=== PATIENT | female | born 1960 | race Caucasian/White ===

== ENCOUNTER 2016-11-27 19:13 | Inpatient (IN) | payer MEDICARE, OTHER ==
[~2016-11-27] VITALS: Ht 162.6 cm; Wt 64.9 kg
--- NOTE | 2016-11-27 19:35 | NUR ---
Patient BIB private ambulance from [facility] for Medical Clearance and GPS admission. Patient arrives on 5150 hold for DTS. Per hold: patient has stated to staff that "voices are telling me to kill myself," patient overdosed on 10 XANAX tablets on 11/24/2016. Per hold: patient has been 'severely disabled' requiring 24/7 care. A/O X3, ambulatory, to room 3A. ERMD performed MSE.
[2016-11-27 19:45] LABS: *BILIRUBIN,URIN NEGATIVE (NEGATIVE); *BLOOD, URINE NEGATIVE (NEGATIVE); *CLARITY,URINE CLEAR (CLEAR); *COLOR,URINE LIGHT YELLOW (YELLOW); *KETONES,URINE NEGATIVE (NEGATIVE); *PROTEIN,URINE NEGATIVE (NEGATIVE); *UROBILINOGEN,URINE 0.2 E.U./dl (NORMAL); NITRITE, URINE NEGATIVE (NEGATIVE); UGLUCOSE NEGATIVE (NEGATIVE)
[2016-11-27 19:55] LABS: LEUKOCYTE ESTERASE ,URINE TRACE (NEGATIVE)
[2016-11-27 19:56] LABS: RBC,URINE 0-3 /HPF (0-3); SQUAMOUS EPITHELIAL CELL,UR FEW /HPF (NONE SEEN)
[2016-11-27] MEDS ORDERED: KETO15VI5 IM (19:58)
[2016-11-27] MEDS ORDERED: ENOX40DI SQ (19:58)
[2016-11-27] MEDS ORDERED: GABA-534 PO (19:58)
[2016-11-27] MEDS ORDERED: IPRA3AMP IH (19:58)
[2016-11-27] MEDS ORDERED: ALPR2TAB7 PO (19:58)
[2016-11-27] MEDS ORDERED: CLON0.1T PO (19:58)
[2016-11-27] MEDS ORDERED: GUAI-177 PO (19:58)
[2016-11-27] MEDS ORDERED: PANT40VI IV (19:58)
[2016-11-27] MEDS ORDERED: ALPR0.255 PO (19:58)
[2016-11-27] MEDS ORDERED: GUAI100S9 PEG (19:58)
[2016-11-27] MEDS ORDERED: DOCU-25 PO (19:58)
[2016-11-27] MEDS ORDERED: NA P133E RC (19:58)
[2016-11-27] MEDS ORDERED: ONDA4VIA30 IV (19:58)
[2016-11-27] MEDS ORDERED: ACET-2154 PO (19:58)
[2016-11-27] MEDS ORDERED: HALO5VIA9 IM (19:58)
[2016-11-27] MEDS ORDERED: PHEN100C4 PO (19:58)
[2016-11-27] MEDS ORDERED: ATOR20TA PO (19:58)
[2016-11-27] MEDS ORDERED: NITR0.4T6 SL (19:58)
[2016-11-27] MEDS ORDERED: [UNRECOGNIZED DRUG - CODE] PO (19:58)
[2016-11-27 19:59] LABS: *AMPHETAMINE, URINE NEGATIVE (NEGATIVE); *BARBITURATE, URINE NEGATIVE (NEGATIVE); *CANNABINOID, URINE NEGATIVE (NEGATIVE); *COCCAINE, URINE NEGATIVE (NEGATIVE); *OPIATE, URINE NEGATIVE (NEGATIVE); *PHENCYCLIDINE SCREEN,URINE NEGATIVE (NEGATIVE)
[2016-11-27 20:14] LABS: BASOPHILS # (AUTO) 0.1 K/uL (0.0-8.0); EOSINOPHILS # (AUTO) 0.2 K/uL (0.0-0.7); EOSINOPHILS % (AUTO) 2.4 % (0.0-7.0); HEMATOCRIT 37.1 % (37-47); HEMOGLOBIN 12.6 G/DL (12.0-16.0); LYMPHOCYTES # (AUTO) 2.9 K/UL (0.8-4.8); MEAN CORPUSCULAR HEMOGLOBIN 31.9 UUG (27.0-31.0); MEAN CORPUSCULAR HGB CONC 34 g/dL (32.0-37.0); MEAN CORPUSCULAR VOLUME 94.3 FL (81.0-99.0); MONOCYTES # (AUTO) 0.7 K/UL (0.1-1.30); MONOCYTES % (AUTO) 7.8 % (0.0-11.0); NEUTROPHILS # (AUTO) 4.5 K/UL (1.8-8.9); NEUTROPHILS % (AUTO) 54.8 % (38.5-71.5); PLATELET COUNT (AUTO) 204 K/UL (150-450); RED BLOOD CELL COUNT(AUTO) 3.94 MIL/UL (4.2-5.4); RED CELL DISTRIBUTION WIDTH 13.4 % (11.5-14.5); WHITE BLOOD COUNT (AUTO) 8.4 K/UL (4.0-11.2)
[2016-11-27 20:25] LABS: CALCIUM 8.6 mg/dL (8.5-10.1); CARBON DIOXIDE 31 mmol/L (21-32); CHLORIDE 108 mmol/L (98-107); CREATININE 0.6 mg/dL (0.6-1.3); GFR 104 mL/min (>60); GLUCOSE 93 mg/dL (74-106); POTASSIUM 3.5 mmol/L (3.5-5.1); SODIUM SERUM 147 mmol/L (136-145); UREA NITROGEN, BLOOD 6 mg/dL (7-18)
[2016-11-27 20:39] LABS: ETHANOL < 3 MG/DL (0-0)
[2016-11-27 20:42] LABS: ACETAMINOPHEN 3.2 ug/mL (10-30); ALANINE AMINOTRANSFERASE 58 U/L (14-59); ALBUMIN 3.1 g/dL (3.4-5.0); ALKALINE PHOSPHATASE 75 U/L (50-136); ASPARTATE AMINOTRANSFERASE 28 U/L (15-37); BILIRUBIN,DIRECT 0.1 mg/dL (0.0-0.2); BILIRUBIN,TOTAL 0.2 mg/dL (0.2-1.0); TOTAL PROTEIN, SERUM 5.9 g/dL (6.4-8.2)
--- NOTE | 2016-11-27 20:57 | NUR ---
Pt. admitted to GPS, under care of Dr. Tang Belongs List completed
[2016-11-27] MEDS ORDERED: MAG HYDROX/AL HYDROX/SIMETH 30 ML LIQUID UDC PO PRN (22:00)
[2016-11-27] MEDS ORDERED: MAGNESIUM HYDROXIDE 30 ML LIQUID UDC PO PRN (22:00)
[2016-11-27] MEDS ORDERED: ZOLPIDEM 5 MG TABLET PO PRN (22:00)
[2016-11-27] MEDS ORDERED: NITROGLYCERIN 0.4 MG/TAB BOTTLE SL PRN (22:00)
[2016-11-27] MEDS ORDERED: ACETAMINOPHEN 325 MG TABLET PO PRN (22:00)
[2016-11-27] MEDS ORDERED: GUAIFENESIN SUGAR FREE 100 MG/5 ML UDC PEG PRN (22:00)
[2016-11-27] MEDS ORDERED: CLONIDINE HCL 0.1 MG TABLET PO PRN (22:00)
[2016-11-27] MEDS ORDERED: ZOLPIDEM 5 MG TABLET ONE (22:08)
[2016-11-27 23:06] LABS: THYROID STIMULATING HORMONE 2.259 mIU/mL (0.358-3.740)
--- NOTE | 2016-11-27 23:31 | NUR ---
PATIENT RECEIVED FROM ER VIA WHEEL CHAIR AT 2114. PATIENT ALERT/ORIENTED X3, PATIENT ABLE TO MAKE NEEDS KNOWN. PATIENT DENIES PAIN AT THIS TIME, DID MENTION HAD LEFT HIP REPLACEMENT. PATIENT ABLE TO SIGN ADMISSION PAPERS AND ANSWER QUESTIONS ON HEALTH AND REASON FOR ADMISSION. PATIENT STATED " I WAS HEARING VOICES TO KILL MY SELF AND TOOK LOTS OF XANAX." WHEN ASKED IF SHE HAS THOUGHTS OF HARMING SELF " NO, I WANT TO GET HELP." PATIENT DENIES AUDITORY HALLUCINATIONS, WILL CONTINUE TO MONITOR AND REDIRECT NEEDED.PATIENT COOPERATIVE WITH CARE, PLEASANT CALM WITH FLAT AFFECT, IS EASILY ANXIOUS WILL CONTINUE TO MONITOR. PATIENT HAS LEFT UPPER AND LOWER ARM BRUISE, AND RIGHT ARM BAND AID WITH BRUISE HAD PICC LINE REMOVED IN ER. PATIENT CHECKED FOR CONTRABAND AND REMOVED PLACED IN LOCKER, SHOWERED AND IN HOSPITAL GOWN.PATIENT AMBULATORY CONTINENT OF BOWEL AND BLADDER, PATIENT ORIENTED TO UNIT, AND ROOM. 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 BED IN LOWEST POSITION, BED LOCKED. PATIENT RECEIVED PATIENT'S RIGHTS HAND BOOK AND ADVISEMENT.
[2016-11-28 00:38] VITALS: BP 122/79
[2016-11-28] MEDS: LORAZEPAM 0.5 MG TABLET PO PRN ×2 (00:45→10:02)
[2016-11-28] MEDS ORDERED: LORAZEPAM 0.5 MG TABLET ONE (00:54)
[2016-11-28 07:30] VITALS: BP 101/69
[2016-11-28] MEDS ORDERED: GUAIFENESIN SUGAR FREE 100 MG/5 ML UDC PO PRN (07:30)
[2016-11-28] MEDS: MUPIROCIN 2% OINT 22 GM TUBE NS SCH ×2 (10:03→20:08)
[2016-11-28] MEDS: DOCUSATE SODIUM 100 MG CAPSULE PO SCH ×2 (10:16→17:13)
[2016-11-28] MEDS: GABAPENTIN 300 MG CAPSULE PO SCH ×3 (10:16→17:13)
--- NOTE | 2016-11-28 13:37 | NUR ---
GPS/RN- LEFT MESSAGE FOR DR RUBY FOR CONSULT REQUEST.
--- NOTE | 2016-11-28 13:41 | NUR ---
Initial discharge instructions: The patient resides at home alone [[address] [place] [id number]; ]. She receives 140 hours from [facility]. Per pt, her [facility] caregiver Du Yeung will most likely be able to pick her up and take her home upon discharge. SW will contact the patient's father Hermelindo Cerna to discuss discharge planning. SS will form a safe and proper discharge.
--- NOTE | 2016-11-28 14:24 | NUR ---
GPS/RN-Received call from Dr Porter, will see patient tomorrow for consult
[2016-11-28] MEDS ORDERED: NICOTINE 21 MG/24HR PATCH TD SCH (14:30)
[2016-11-28] MEDS: NICOTINE 14 MG/24HR PATCH TD SCH (14:51)
[2016-11-28] MEDS ORDERED: IPRATROPIUM BROMIDE 0.5 MG/2.5 ML NEBU NEB PRN (15:00)
[2016-11-28] MEDS ORDERED: ALBUTEROL SULFATE 2.5 MG/ 0.5 ML NEBU NEB PRN (15:00)
[2016-11-28 15:07] VITALS: BP 111/72
--- NOTE | 2016-11-28 15:28 | NUR ---
GPS/RN- RECEIVED VERBAL CONSENT TO SPEAK TO PATIENTS RN FROM [facility] [phone], SPOKE WITH SABRINA CORREIA, CURRENT HOLD STATUS, UTILIZATION REVIEW COORDINATOR TO NOTIFY THEM OF PATIENTS DISCHARGE WHEN STABLE. SALOME, UTILIZATION REVIEW COORDINATOR NOTIFIED.
[2016-11-28] MEDS: CLONAZEPAM 1 MG TABLET PO PRN (17:10)
[2016-11-28 20:00] VITALS: BP 116/70
[2016-11-28] MEDS: QUETIAPINE FUMARATE 100 MG TABLET PO SCH (20:07)
[2016-11-28] MEDS: LAMOTRIGINE 200 MG TABLET PO SCH (20:07)
[2016-11-28] MEDS: ATORVASTATIN 20 MG TABLET PO SCH (20:07)
[2016-11-28] MEDS: PHENYTOIN SODIUM EXTENDED 100 MG CAPSULE.SA PO SCH (20:08)
--- NOTE | 2016-11-28 21:36 | NUR ---
PATIENT RECEIVED IN ACTIVITIES ROOM WATCHING T.V. WITH MASK ON DUE TO (+) MRSA OF THE NARES. PATIENT AWARE OF ISOLATION PRECAUTIONS. PATIENT DENIES SI, WILL CONTINUE TO MONITOR. PATIENT ENCOURAGED TO EXPRESS FEELINGS AND CONCERNS. PATIENT COMPLAINT WITH HS MEDICATION/CARE. PATIENT IN NO APPARENT DISTRESS, NO AGGRESSIVE OR COMBATIVE BEHAVIOR WILL CONTINUE TO MONITOR AND REDIRECT NEEDED. PATIENT DENIES PAIN AT THIS TIME, WILL CONTINUE TO MONITOR.
[2016-11-28] MEDS: TEMAZEPAM 15 MG CAPSULE PO PRN (23:58)
[2016-11-29 07:30] VITALS: BP 95/67
[2016-11-29] MEDS: SERTRALINE HCL 50 MG TABLET PO SCH (08:00)
[2016-11-29] MEDS: NICOTINE 14 MG/24HR PATCH TD SCH (08:00)
[2016-11-29] MEDS: LAMOTRIGINE 200 MG TABLET PO SCH ×2 (08:01→20:06)
[2016-11-29] MEDS: DOCUSATE SODIUM 100 MG CAPSULE PO SCH ×2 (08:01→17:31)
[2016-11-29] MEDS: GABAPENTIN 300 MG CAPSULE PO SCH ×3 (08:01→17:32)
[2016-11-29] MEDS: MUPIROCIN 2% OINT 22 GM TUBE NS SCH (08:10)
[2016-11-29] MEDS: CLONAZEPAM 1 MG TABLET PO PRN ×2 (09:05→17:32)
--- NOTE | 2016-11-29 09:21 | NUR ---
GPS RN PT WILL BE TRANSFERRED TO 2ND FLOOR OVERFLOW. CHART SENT WITH THE PATIENT. REPORT GIVEN TO SABRINA GREEN.
--- NOTE | 2016-11-29 09:30 | NUR ---
RECEIVED PT FROM [facility] IN WHEELCHAIR. PT A/OX3. V/S STABLE. NO SIGNS OF ACUTE DISTRESS. CALL LIGHT WITHIN REACH. 1:1 SITTER AND BEDSIDE FOR SAFETY.
[2016-11-29 10:06] VITALS: BP 110/75
--- NOTE | 2016-11-29 11:00 | NUR ---
ORDERED 14 DAY HOLD.
[2016-11-29 16:00] VITALS: BP 98/64
--- NOTE | 2016-11-29 18:35 | NUR ---
END OF SHIFT NOTES. PT A/OX3. PT IN STABLE CONDITION. NO SIGNS OF ACUTE DISTRESS. SAFETY MEASURE PROVIDED. CALL LIGHT W/IN REACH. 1:1 SITTER AT BEDSIDE.
[2016-11-29] MEDS: HYDROCODONE/APAP 5-325MG TABLET PO PRN (18:50)
--- NOTE | 2016-11-29 19:30 | NUR ---
RECEIVED PT IN BED, RESTING. CALM AND COOPERATIVE, IN NO ACUTE SIGNS OF DISTRESS, SITTER AT BEDSIDE. DENIES SI AT THIS TIME. SAFETY OBSERVED. CALL LIGHT WITHIN REACH.
[2016-11-29 20:00] VITALS: BP 117/85
[2016-11-29] MEDS: ATORVASTATIN 20 MG TABLET PO SCH (20:06)
[2016-11-29] MEDS: PHENYTOIN SODIUM EXTENDED 100 MG CAPSULE.SA PO SCH (20:06)
[2016-11-29] MEDS: QUETIAPINE FUMARATE 100 MG TABLET PO SCH (20:06)
[2016-11-29] MEDS: VALACYCLOVIR HCL 500 MG TABLET PO SCH (20:06)
[2016-11-29] MEDS: TEMAZEPAM 15 MG CAPSULE PO PRN (21:39)
[2016-11-30 05:00] VITALS: BP 107/66
[2016-11-30] MEDS: HYDROCODONE/APAP 5-325MG TABLET PO PRN ×3 (05:30→20:47)
--- NOTE | 2016-11-30 06:49 | NUR ---
PT AMBULATING IN THE HALLWAY WITH THE SITTER, WITH ASSISTIVE DEVICE. WAS GIVEN NORCO FOR C/O LEFT HIP PAIN, AND WAS HELPFUL. SLEPT TOTAL OF 6.0 HRS. SAFETY MAINTAINED. CALL LIGHT WITHIN REACH.
--- NOTE | 2016-11-30 08:00 | NUR ---
AWAKE CALM AND COOPERATE AT THIS TIME NO S/S OF ANY CHEST PAIN ,SOB OR SUCIDAL THOUGHT TAKE AM MEDICATION ORDER
[2016-11-30 08:25] VITALS: BP 101/70
[2016-11-30] MEDS: LAMOTRIGINE 200 MG TABLET PO SCH ×2 (08:41→20:47)
[2016-11-30] MEDS: GABAPENTIN 300 MG CAPSULE PO SCH ×3 (08:41→16:44)
[2016-11-30] MEDS: CLONAZEPAM 1 MG TABLET PO PRN ×2 (08:41→16:46)
[2016-11-30] MEDS: SERTRALINE HCL 50 MG TABLET PO SCH (08:42)
[2016-11-30] MEDS: NICOTINE 14 MG/24HR PATCH TD SCH (08:42)
[2016-11-30] MEDS: VALACYCLOVIR HCL 500 MG TABLET PO SCH ×2 (08:42→20:47)
[2016-11-30] MEDS: DOCUSATE SODIUM 100 MG CAPSULE PO SCH ×2 (08:49→16:44)
--- NOTE | 2016-11-30 14:00 | NUR ---
STATE HAVING SOME VAG DISCHARGE HX OF HERPIES ,HAVING CHECK ON THIS AFTERNOON IT WAS NO DISCHARGE FROM VAGINA AND CLEAN ,INSTRUCTION TO CLEAN /WASH POST VOIDING OR AFTER HAVING BM,VERBALIZES UNDERSTAND
--- NOTE | 2016-11-30 15:00 | NUR ---
PATIENT ASKING TO USE TEL TO CALL FAMILY ,GIVEN AND CLOSED OBSERVATION DOING WELL NO ANXIUOS OR AGITATION
[2016-11-30 15:03] VITALS: BP 107/75
--- NOTE | 2016-11-30 17:00 | NUR ---
RESTING QUIET PAIN UNDER CONTROL SAFETY MEASURE PROVIDED CALL LIGHT WITHIN REACH AND SITTER1:1 AT BEDSIDE
--- NOTE | 2016-11-30 19:10 | NUR ---
Received report from SABRINA Oakley
--- NOTE | 2016-11-30 19:50 | NUR ---
Seen patient ambulatiing in the hallway with FWW accompanied by the sitter. NO SOB/SOBOE presented.
[2016-11-30 20:11] VITALS: BP 122/83
--- NOTE | 2016-11-30 20:30 | NUR ---
Complaint of left hip pain, medicated as needed. Will monitor.
[2016-11-30] MEDS: PHENYTOIN SODIUM EXTENDED 100 MG CAPSULE.SA PO SCH (20:46)
[2016-11-30] MEDS: ATORVASTATIN 10 MG TABLET PO SCH (20:46)
[2016-11-30] MEDS: QUETIAPINE FUMARATE 100 MG TABLET PO SCH (20:46)
[2016-11-30] MEDS ORDERED: ATORVASTATIN 20 MG TABLET PO SCH (21:00)
[2016-12-01] MEDS: TEMAZEPAM 15 MG CAPSULE PO PRN ×2 (01:15→21:40)
--- NOTE | 2016-12-01 01:25 | NUR ---
Medicated for pain as needed. Will monitor therapuetic effect.
[2016-12-01 04:00] VITALS: BP 106/74
--- NOTE | 2016-12-01 06:34 | NUR ---
Slept at short interval. Sitter remain at bedside. Pain management effective. No further complaint presented. All needs attended and met. Continue care as planned.
--- NOTE | 2016-12-01 06:59 | NUR ---
Report given to SABRINA Gomez
[2016-12-01] MEDS: NICOTINE 14 MG/24HR PATCH TD SCH (08:18)
[2016-12-01] MEDS: GABAPENTIN 300 MG CAPSULE PO SCH ×3 (08:18→17:48)
[2016-12-01] MEDS: LAMOTRIGINE 200 MG TABLET PO SCH ×2 (08:19→20:29)
[2016-12-01] MEDS: SERTRALINE HCL 50 MG TABLET PO SCH (08:19)
[2016-12-01] MEDS: CLONAZEPAM 1 MG TABLET PO PRN ×2 (08:19→17:48)
[2016-12-01] MEDS: FAMOTIDINE 20 MG TABLET PO SCH (08:19)
[2016-12-01] MEDS: DOCUSATE SODIUM 100 MG CAPSULE PO SCH ×2 (08:19→17:48)
[2016-12-01] MEDS: VALACYCLOVIR HCL 500 MG TABLET PO SCH ×2 (08:26→20:37)
[2016-12-01] MEDS: HYDROCODONE/APAP 5-325MG TABLET PO PRN ×2 (08:26→14:10)
--- NOTE | 2016-12-01 08:30 | NUR ---
AWAKE COOPERATE WELL NO SOB OR PAIN AT THIS TIME SAFETY PRECAUTION SITTER1:1 AT BEDSIDE AND CALL LIGHT WITHIN REACH
[2016-12-01 11:45] VITALS: BP 104/72
[2016-12-01 16:09] VITALS: BP 123/81
--- NOTE | 2016-12-01 18:00 | NUR ---
SAME CONDITION AMB WELL IN THE RESENDIZ WAY HEMODYNAMICS STATUS STABLE CALM AND COOPERATE TODAY
[2016-12-01 20:00] VITALS: BP 132/75
--- NOTE | 2016-12-01 20:00 | NUR ---
LAYING IN BED, CALM AND COOPERATIVE. NO S/SX OF AGGRESSION NOTED. NO HALLUCINATIONS NOTED. WITH COMPLAINTS OF LEFT GROIN SPASMS, REQUESTING FOR MUSCLE RELAXANT. CONTINUES WITH 1:1 SITTER AT BEDSIDE. WILL CONTINUE TO MONITOR
[2016-12-01] MEDS: ATORVASTATIN 10 MG TABLET PO SCH (20:29)
[2016-12-01] MEDS: PHENYTOIN SODIUM EXTENDED 100 MG CAPSULE.SA PO SCH (20:29)
[2016-12-01] MEDS: QUETIAPINE FUMARATE 100 MG TABLET PO SCH (20:29)
[2016-12-01] MEDS: CARISOPRODOL 350 MG TABLET PO PRN (21:40)
[2016-12-01] MEDS ORDERED: CARISOPRODOL 350 MG TABLET ONE (21:49)
--- NOTE | 2016-12-02 06:06 | NUR ---
REMAINED CALM THROUGH OUT THE SHIFT. NO ACUTE DISTRESS NOTED. NO HALLUCINATIONS NOTED. SLEPT FOR A TOTAL OF 7.5 HOURS. NEEDS ATTENDED. COOPERATIVE WITH CARE. ALL DUE MEDS GIVEN ORDERED. CONTINUES WITH 1:1 SITTER FOR SAFETY. NO SUICIDAL IDEATION NOTED
[2016-12-02 06:45] LABS: CREATININE 0.8 mg/dL (0.6-1.3); MAGNESIUM 2.5 mg/dL (1.8-2.4); PHOSPHOROUS 5.1 mg/dL (2.5-4.9); POTASSIUM 4.7 mmol/L (3.5-5.1)
[2016-12-02 06:54] LABS: BASOPHILS % (AUTO) 0.4 % (0.0-2.0); EOSINOPHILS # (AUTO) 0.4 K/uL (0.0-0.7); EOSINOPHILS % (AUTO) 5.2 % (0.0-7.0); HEMATOCRIT 39.4 % (37-47); HEMOGLOBIN 13.7 G/DL (12.0-16.0); LYMPHOCYTES # (AUTO) 2.6 K/UL (0.8-4.8); LYMPHOCYTES % (AUTO) 36.6 % (20.5-51.5); MEAN CORPUSCULAR HEMOGLOBIN 32.6 UUG (27.0-31.0); MEAN CORPUSCULAR HGB CONC 35 g/dL (32.0-37.0); MEAN CORPUSCULAR VOLUME 93.9 FL (81.0-99.0); MONOCYTES # (AUTO) 0.7 K/UL (0.1-1.30); NEUTROPHILS # (AUTO) 3.4 K/UL (1.8-8.9); NEUTROPHILS % (AUTO) 47.8 % (38.5-71.5); PLATELET COUNT (AUTO) 183 K/UL (150-450); RED CELL DISTRIBUTION WIDTH 14.1 % (11.5-14.5); WHITE BLOOD COUNT (AUTO) 7.1 K/UL (4.0-11.2)
--- NOTE | 2016-12-02 07:10 | NUR ---
PT SLEEPING IN BED, AWAKENS TO TOUCH, SITTER AT BEDSIDE, NO ACUTE DISTRESS, ALL SAFETY AND COMFORT MEASURES ATTENDED TO, CALL LIGHT IN REACH.
[2016-12-02] MEDS: NICOTINE 14 MG/24HR PATCH TD SCH (08:35)
[2016-12-02] MEDS: HYDROCODONE/APAP 5-325MG TABLET PO PRN ×3 (08:35→22:02)
[2016-12-02] MEDS: LAMOTRIGINE 200 MG TABLET PO SCH ×2 (08:35→20:37)
[2016-12-02] MEDS: SERTRALINE HCL 50 MG TABLET PO SCH (08:35)
[2016-12-02] MEDS: FAMOTIDINE 20 MG TABLET PO SCH (08:35)
[2016-12-02] MEDS: DOCUSATE SODIUM 100 MG CAPSULE PO SCH ×2 (08:35→16:18)
[2016-12-02] MEDS: GABAPENTIN 300 MG CAPSULE PO SCH ×3 (08:35→16:18)
[2016-12-02] MEDS: VALACYCLOVIR HCL 500 MG TABLET PO SCH ×2 (08:44→20:38)
[2016-12-02] MEDS: CARISOPRODOL 350 MG TABLET PO PRN (11:02)
[2016-12-02 12:00] VITALS: BP 124/83
[2016-12-02 15:55] VITALS: BP 106/62
[2016-12-02] MEDS: CLONAZEPAM 1 MG TABLET PO PRN (16:18)
[2016-12-02 19:30] VITALS: BP 120/81
--- NOTE | 2016-12-02 20:00 | NUR ---
WALKING IN THE HALLWAY ALONG WITH SITTER. NO ACUTE DISTRESS NOTED. NO SUICIDAL IDEATION NOTED. NO ACUTE DISTRESS NOTED. DENIES ANY HALLUCINATION. ABLE TO MAKE NEEDS KNOWN. CONTINUES WITH 1:1 SITTER AT BEDSIDE
[2016-12-02] MEDS: QUETIAPINE FUMARATE 100 MG TABLET PO SCH (20:37)
[2016-12-02] MEDS: ATORVASTATIN 10 MG TABLET PO SCH (20:37)
[2016-12-02] MEDS: PHENYTOIN SODIUM EXTENDED 100 MG CAPSULE.SA PO SCH (20:37)
[2016-12-02] MEDS: TEMAZEPAM 15 MG CAPSULE PO PRN (22:02)
--- NOTE | 2016-12-03 05:59 | NUR ---
NO ACUTE DISTRESS NOTED. ALL DUE MEDS GIVEN ORDERED. NO SUICIDAL IDEATION NOTED. CONTINUES WITH SITTER AT BEDSIDE. SLEPT FOR A TOTAL OF 6.5 HOURS. NO HALLUCINATIONS NOTED. COMPLIANT WITH CARE.
[2016-12-03 06:07] VITALS: BP 109/76
[2016-12-03] MEDS: HYDROCODONE/APAP 5-325MG TABLET PO PRN (07:23)
--- NOTE | 2016-12-03 07:45 | NUR ---
AWAKE ALERT COOPERATE AT THIS TIME C/O OF PAIN ON SCOTTY LEG MED PRN GIVEN ORDER NO SUICIDAL THOUGHT OR HALLUCIANATION SAFETY MEASURE PROVIDED SITTER 1:1 AND CALL BECERRA IN REACH
--- NOTE | 2016-12-03 08:12 | NUR ---
DC Note: The patient will be discharged today back home [[address] [place] [address]; ] via private car at 9:00 am. Her ex-/friend William will pick her up and take her home. The patient is aware and agreeablw with the discharge plan. Per pt, she receives 140 hours from [facility]. Per pt, her [facility] caregiver Du Yeung will be able to assist her at her home upon discharge. SW has called the patient's personal RN, Dee with the [facility] and informed her of the discharge plan. The patient will follow-up with her management specialist Dr. Calle and her psychiatrist Dr. Allan Farnsworth . The patient was provided with the brief intervention for substance abuse and was provided with the appropriate referrals. She was referred to [facility] , [facility] , and [facility] . The patient will present at [facility] [[address] [place] [address]; at 9:00 am for intake screening.
[2016-12-03] MEDS: LAMOTRIGINE 200 MG TABLET PO SCH (08:22)
[2016-12-03] MEDS: CLONAZEPAM 1 MG TABLET PO PRN (08:22)
[2016-12-03] MEDS: NICOTINE 14 MG/24HR PATCH TD SCH (08:22)
[2016-12-03] MEDS: DOCUSATE SODIUM 100 MG CAPSULE PO SCH (08:22)
[2016-12-03] MEDS: GABAPENTIN 300 MG CAPSULE PO SCH (08:22)
[2016-12-03] MEDS: VALACYCLOVIR HCL 500 MG TABLET PO SCH (08:22)
[2016-12-03] MEDS: SERTRALINE HCL 50 MG TABLET PO SCH (08:22)
[2016-12-03] MEDS: FAMOTIDINE 20 MG TABLET PO SCH (08:22)
--- NOTE | 2016-12-03 08:30 | NUR ---
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
--- NOTE | 2016-12-03 08:45 | NUR ---
REFUSED TO TAKE PICTURE ON LFA SKIN BRUISE ALMOST CLEAR NO OPEN SKIN NOTED STATE I AM OKAY
--- NOTE | 2016-12-03 09:45 | NUR ---
DISCHARGE HOME WITH FAMILY /FRIEND CONDITION STABLE
== END 2016-12-03 09:45 | disposition home or self-care (01) | DRG 885 ==
LOC: ER 19:13 → GPS 20:53 → GPSOV 11-29 09:32
PROVIDERS: ADMIT Psychiatry & Neurology Psychiatry; ATTEND Internal Medicine
DX: F31.5 Bipolar disorder, current episode depressed, severe, with psychotic features (principal); E87.0 Hyperosmolality and hypernatremia; F29 Unspecified psychosis not due to a substance or known physiological condition; F43.10 Post-traumatic stress disorder, unspecified; G40.909 Epilepsy, unspecified, not intractable, without status epilepticus; J44.9 Chronic obstructive pulmonary disease, unspecified; Z79.899 Other long term (current) drug therapy; Z91.5 Personal history of self-harm; F17.210 Nicotine dependence, cigarettes, uncomplicated; E55.9 Vitamin D deficiency, unspecified; E78.5 Hyperlipidemia, unspecified; G89.29 Other chronic pain; M79.7 Fibromyalgia; M19.90 Unspecified osteoarthritis, unspecified site; B00.9 Herpesviral infection, unspecified
CPT/HCPCS: 36415; 80307; 82306; 83735; 84100; 84443; 85025; A4663; G0480-TC; G6040-TC